=== PATIENT | female | born 1955 | race Caucasian/White ===

== ENCOUNTER 2017-11-28 04:41 | Emergency (ER) | payer BC ==
[~2017-11-28] VITALS: Ht 160 cm; Wt 45.4 kg
--- OUTSIDE RECORDS SUMMARY | 2017-11-28 04:47 | XMS | Clinical Summary ---
Demographics + + + | Address | [address] | | | [place] [address] | + + + | Home Phone | | + + + | Preferred Language | Unknown | + + + | Marital Status | Single | + + + | Orthodoxy Affiliation | CAT | + + + | Race | White | + + + | Ethnic Group | Not or | + + + Author + + + | Author | [facility] | + + + | Organization | [facility] | + + + | Address | Unknown | + + + | Phone | Unavailable | + + + Care Team Providers + +------+ + | Care Termite Renewal Inspector Name | Role | Phone | + +------+ + PP | Unavailable | + +------+ + Source Comments GIORGIO is fully live on both [facility] and [facility] InPatient.[facility] Allergies Not on File Current Medications Not on file Active Problems Not on file Social History + +-------+ +--------+------+ | Tobacco Use | Types | Packs/Day | Years | Date | | | | | Used | | + +-------+ +--------+------+ | Never Assessed | | | | | + +-------+ +--------+------+ + + + | Sex Assigned at | Date Recorded | | | | + + + | Not on file | | + + + Plan of Treatment + + + + + | Health Maintenance | Due Date | Last Done | Comments | + + + + + | INFLUENZA VACCINE | | | | | (FLU SHOT) | 7 | | | + + + + + Results Not on filefrom Last 3 Months"
--- OUTSIDE RECORDS SUMMARY | 2017-11-28 04:47 | XMS | Clinical Summary ---
Demographics + + + | Address | [address] | | | [place] [address] | + + + | Home Phone | | + + + | Preferred Language | Unknown | + + + | Marital Status | Single | + + + | Yarsani Affiliation | CAT | + + + | Race | White | + + + | Ethnic Group | Not or | + + + Author + + + | Author | [facility] | + + + | Organization | [facility] | + + + | Address | Unknown | + + + | Phone | Unavailable | + + + Care Team Providers + +------+ + | Care Plant Changer Name | Role | Phone | + +------+ + PP | Unavailable | + +------+ + Source Comments GIORGIO is fully live on both [facility] and [facility] InPatient.[facility] Allergies Not on File Current Medications Not [...]
[2017-11-28] MEDS ORDERED: SLIPPERY ELM (06:34)
[2017-11-28] MEDS ORDERED: MSM1000 MG PO (06:35)
[2017-11-28] MEDS ORDERED: GLUCOSAMIN-CHO1 EACH PO (06:35)
[2017-11-28] MEDS ORDERED: GINKGO60 MG PO (06:36)
[2017-11-28] MEDS ORDERED: EVENING PRIMRO500 M1 PO (06:37)
[2017-11-28] MEDS ORDERED: ALLERCLEAR10 MG PO (06:37)
[2017-11-28] MEDS ORDERED: ECHINACEA EXTR125 MG PO (06:37)
[2017-11-28] MEDS ORDERED: ONE-TABLET-DAI1 EACH PO (06:38)
[2017-11-28] MEDS ORDERED: ZOFRAN ODT4 MG PO (08:34)
== END 2017-11-28 08:52 | disposition home or self-care (01) ==
LOC: ED 04:41
DX: E87.6 Hypokalemia (principal); R11.2 Nausea with vomiting, unspecified; R10.13 Epigastric pain; Z88.2 Allergy status to sulfonamides; Z88.5 Allergy status to narcotic agent; Z79.899 Other long term (current) drug therapy
CPT/HCPCS: 74177; 80048; 80053; 83690; 85025; 96374; 96375; 96376; 99284; J2405; J2550; J3480; J7030; Q9967

== ENCOUNTER 2020-11-02 21:36 | Emergency (ER) | payer BC ==
[~2020-11-02 21:36] MED LIST: ALLERCLEAR10 MG PO; ECHINACEA EXTR125 MG PO; EVENING PRIMRO500 M1 PO; GINKGO60 MG PO; GLUCOSAMIN-CHO1 EACH PO; MSM1000 MG PO; ONE-TABLET-DAI1 EACH PO; SLIPPERY ELM; ZOFRAN ODT4 MG PO
[2020-11-02] MEDS ORDERED: FLUTICASONE PRO16 GM NAS (21:56)
[2020-11-02] MEDS ORDERED: NASAL DECONGEST30 MG PO (21:57)
[2020-11-02] MEDS ORDERED: EPINEPHRIN0.3 MG/0.3 IM (21:58)
[2020-11-02] MEDS ORDERED: CALCIUM + VITA1 EACH PO (21:59)
== END 2020-11-03 00:07 | disposition home or self-care (01) ==
LOC: ED 21:36
DX: S09.90XA Unspecified injury of head, initial encounter (principal); S03.2XXA Dislocation of tooth, initial encounter; W22.8XXA Striking against or struck by other objects, initial encounter; Z85.3 Personal history of malignant neoplasm of breast; Z88.2 Allergy status to sulfonamides; Z88.5 Allergy status to narcotic agent; Z79.899 Other long term (current) drug therapy
CPT/HCPCS: 70450; 70486; 72125; 90471; 90715; 99283-25

== ENCOUNTER 2022-09-06 06:59 | Day surgery (SDC) | payer BC ==
[~2022-09-06] VITALS: Ht 160 cm; Wt 49.0 kg
[~2022-09-06 06:59] MED LIST changes: +CALCIUM + VITA1 EACH PO; +EPINEPHRIN0.3 MG/0.3 IM; +FLUTICASONE PRO16 GM NAS; +NASAL DECONGEST30 MG PO
--- NOTE | 2022-09-06 08:43 | NUR ---
09/06/22 0843 Opal Fitzgerald 0843-PATIENT ARRIVED TO PACU ON 2L NC RR EVEN. PATIENT LAYING LEFT LATERAL ABDOMEN SOFT. NONAROUSABLE. IVF INFUSING
--- NOTE | 2022-09-06 09:30 | OR ---
[facility] [address] [place], [place] [address] Signed DATE OF OPERATION: 09/06/2022 SURGEON: Anika Shannon MD PREOPERATIVE DIAGNOSIS: Personal history of colonic polyps 2018 (63). POSTOPERATIVE DIAGNOSES: 1. Long redundant colon. 2. Minimal internal hemorrhoids. 3. 4 mm polyp at 8 cm (rectum). 4. 7 mm polyp at 30 cm (snare). 5. 4 mm polyp at 50 cm. PROCEDURE: Colonoscopy with snare polypectomy and hot biopsy. ESTIMATED BLOOD LOSS: None. INDICATIONS: Justin is a 67-year-old female who is 5 foot 2 inches tall and 108 pounds with a body mass index of 19. She had undergone a colonoscopy in [address] Ruby in [place]. Apparently, the prep was poor and she had a large polyp removed. She went back one year later with Dr. Ruby and thinks maybe a small polyp had been removed. She was then asked to return in three years. She has no lower GI complaints. There is no family history of colon cancer or polyps. I had met with Justin in the office and gave her a pamphlet on colonoscopy. We reviewed the nature of the colonoscopy together. She understands there is risk including, but not limited to gas bloating, crampy abdominal pain, bleeding, perforation requiring surgery, and missed diagnosis. We also reviewed the need for IV conscious sedation. She had expressed understanding and wished to proceed. PROCEDURE NOTE: Justin was taken into our endoscopy suite and placed in the left lateral decubitus position. She was given a total of 6 mg of Versed and 150 mcg of fentanyl to cover the case. A digital rectal exam was performed and this was unremarkable. The adult colonoscope was introduced and advanced under direct visualization of the camera. Her prep was quite excellent. We took two of the polyps out with the hot biopsy forceps. We used our snare at 30 cm. We found that Justin has a very long redundant colon. Electronically Signed By: ANIKA SHANNON MD 09/06/22 0930 PATIENT NAME: JUSTIN METZGER OPERATIVE REPORT DATE OF : 51 REPORT #: [id number] PHYSICIAN: ANIKA SHANNON MD PCP: DANYELLE CLAROS REPORT IS CONFIDENTIAL AND NOT TO BE RELEASED WITHOUT AUTHORIZATION [facility] [address] [place], [place] [address] Signed We made it over to what we thought was the hepatic flexure. That in itself took a tremendous amount of effort. We had to camera all the way up to the handle. We brought the camera in and out several times and added additional sedation. We used abdominal compression and we placed Justin in the supine position and back into the left lateral decubitus position. In the end, we could never get the scope to go any further. Therefore, the scope was then slowly withdrawn. We saw no diverticulosis. Once in the rectum, the scope was retroflexed and she has very tiny internal hemorrhoid tissue. After this, the gas was suctioned out and the colonoscope removed. Justin tolerated the procedure quite well. RECOMMENDATIONS: I will see Justin back in my office in 7 to 14 days to review her results. She will need a barium enema to evaluate the proximal colon. It looks like she will stay on the five year plan if not the three year plan. MD LASHELL Longo/WALTERL /[id number] cc: WEN Dozier MD Copies: ANIKA SHANNON MD ~ Electronically Signed By: ANIKA SHANNON MD 09/06/22 0930 PATIENT NAME: JUSTIN METZGER OPERATIVE REPORT DATE OF : 51 REPORT #: [id number] PHYSICIAN: ANIKA SHANNON MD PCP: DANYELLE CLAROS REPORT IS CONFIDENTIAL AND NOT TO BE RELEASED WITHOUT AUTHORIZATION
--- NOTE | 2022-09-06 09:46 | NUR ---
returned from pacu awake talkative taking sips water. at bs.
--- NOTE | 2022-09-06 16:44 | NUR ---
1015 SITTING UP IN BED DRINKING WATER. STATES ILL TRY TO GET DRESSED. ASSISTING.
--- NOTE | 2022-09-06 16:47 | NUR ---
1045 DRESSED, UP TO BR PASSING GAS. STATES FEELS TIRED. DCD PER WC WITH .
--- NOTE | 2022-09-11 15:19 | PATH ---
[facility] [address] [place], [place] [address] Signed SPECIMEN(S): A RECTAL POLYP AT 8 CM SPECIMEN(S): B COLON POLYP AT 30 CM SPECIMEN(S): C COLON POLYP AT 50 CM SPECIMEN SOURCE: A. RECTAL POLYP AT 8 CM B. COLON POLYP AT 30 CM C. COLON POLYP AT 50 CM CLINICAL HISTORY: Pre: Surveillance colonoscopy. History of polyps on two previous exams. Post: Redundant colon, polyps, internal hemorrhoids. FINAL PATHOLOGIC DIAGNOSIS: A. Rectal polyp at 8 cm: - Hyperplastic polyp (two fragments). B. Colon polyp at 30 cm: - Tubular adenoma (one fragment). C. Colon polyp at 50 cm: - Hyperplastic polyp (one fragment). JVR:[facility]:C2NR MICROSCOPIC EXAMINATION: Histologic sections of all submitted blocks are examined by light microscopy. These findings, together with the gross examination, support the pathologic diagnosis. GROSS DESCRIPTION: Three specimens are received in three containers, labeled "CL." A. The specimen, labeled "CL, rectal polyp at 8 cm," is received in formalin and consists of two montejo soft tissue fragments that measure 0.3-0.4 cm in greatest dimension. The specimen is entirely submitted in cassette (A1). B. The specimen, labeled "CL, colon polyp at 30 cm," is received in formalin and consists of one montejo soft tissue fragment that measures 0.7 cm in greatest dimension. The specimen is entirely submitted in cassette (B1). C. The specimen, labeled "CL, colon polyp at 50 cm," is received in formalin and consists of one montejo soft tissue fragment that measures 0.3 cm in greatest dimension. The specimen is entirely submitted in cassette (C1). PATIENT NAME: JUSTIN METZGER PATHOLOGY DATE OF : 51 REPORT #: [id number] PHYSICIAN: BAN RAHMAN PCP: DANYELLE CLAROS REPORT IS CONFIDENTIAL AND NOT TO BE RELEASED WITHOUT AUTHORIZATION [facility] [address] [place], [place] [address] Signed VB (under the direct supervision of a pathologist) The Gross Description was prepared using a voice recognition system. The report was reviewed for accuracy; however, sound-alike word errors, addition and/or deletions may occur. If there is any question about this report, please contact Client Services. PERFORMING LABORATORY: The technical component was performed by [email or web address], [address] [place] [id number] (CLIA# [id number]). Professional interpretation was performed by [facility], [address] [place] [id number] (CLIA#: [id number]). Diagnostician: Santiago Zheng MD Pathologist Electronically Signed 09/11/2022 Copies: ~ PATIENT NAME: JUSTIN METZGER PATHOLOGY DATE OF : 51 REPORT #: [id number] PHYSICIAN: BAN RAHMAN PCP: DANYELLE CLAROS REPORT IS CONFIDENTIAL AND NOT TO BE RELEASED WITHOUT AUTHORIZATION
== END 2022-09-06 10:30 | disposition home or self-care (01) ==
LOC: OPS 06:59 → DS 06:59 → OPS 08:15
PROVIDERS: ATTEND Colon & Rectal Surgery
PROC: 0DBE8ZZ Excision of Large Intestine, Via Natural or Artificial Opening Endoscopic (ICD-10-PCS; 2022-09-06)
PROC: 0DBP8ZZ Excision of Rectum, Via Natural or Artificial Opening Endoscopic (ICD-10-PCS; principal; 2022-09-06 08:15)
DX: Z12.11 Encounter for screening for malignant neoplasm of colon (principal); Z86.010 Personal history of colon polyps; J30.2 Other seasonal allergic rhinitis; Z88.2 Allergy status to sulfonamides; Z88.5 Allergy status to narcotic agent; K63.89 Other specified diseases of intestine; K64.8 Other hemorrhoids; D12.6 Benign neoplasm of colon, unspecified
CPT/HCPCS: 99153; G0500; J2250; J3010; J7121

== ENCOUNTER 2022-11-09 06:48 | Day surgery (SDC) | payer BC ==
[~2022-11-09] VITALS: Ht 160 cm; Wt 47.7 kg
[~2022-11-09 06:48] MED LIST changes: +ALLEGRA ALLERG180 MG PO; +VENTOLIN HFA18 GM INH
[2022-11-09] MEDS ORDERED: ACETAMINOPHEN325 M1 PO (07:10)
[2022-11-09] MEDS ORDERED: FLUTICASONE PRO16 GM NAS (07:11)
[2022-11-09] MEDS ORDERED: NASAL DECONGEST10 MG PO (07:12)
--- NOTE | 2022-11-09 09:00 | NUR ---
11/09/22 0900 Arielle Alanis 0857- PT ARRIVES TO PACU NONAROUSABLE TO STIMULI WITH AN OPA IN PLACE. RESP EVEN AND UNLABORED. OXYGEN SAT 100% ON 10L VIA MASK. OXYGEN TITRATED DOWN TO 6L.
--- NOTE | 2022-11-09 11:13 | OR ---
[facility] [address] [place], [place] [address] Signed DATE OF OPERATION: 11/09/2022 SURGEON: Anika Shannon MD PREOPERATIVE DIAGNOSES: 1. Tattoo mid right colon. 2. Personal history of colonic polyps starting in 2018 at age 62. 3. Possible history of diverticulosis. 4. Long redundant colon. 5. Minimal internal hemorrhoids. 6. Incomplete colonoscopy in 2021. POSTOPERATIVE DIAGNOSES: 1. Tattoo mid right colon. 2. 4 mm polyp proximal right colon. 3. 7 mm sessile polyp mid right colon next to tattoo. 4. 10 mm sessile polyp, distal right colon. 5. 3 mm polyp at 5 cm. 6. Long redundant colon. 7. No evidence of diverticulosis. PROCEDURE: Colonoscopy with hot biopsy. ESTIMATED BLOOD LOSS: None. INDICATIONS: Justin is a 67-year-old female who returns for a followup colonoscopy. We finally tracked down her records in 2018 and in [address] Ruby. She had a 3 cm sessile serrated adenomatous polyp in her right colon. Tattoo had been left. Dr. Ruby went back one year later and removed the rest of that polyp. Justin also was very sensitive to the bowel preps and has to take her bowel prep throughout the entire day. She was told to follow up in three years for repeat colonoscopy. We did her colonoscopy last fall and we used Versed and fentanyl. We were unable to get all around into the proximal right colon because of the length of her left colon and she was quite uncomfortable. She is returning now to repeat the colonoscopy with monitored anesthesia care using propofol. She tells me that she uses the MiraLAX with Jell-O and that worked out very well for her. She also has a very tiny internal hemorrhoid tissue. In the office then, I had given her another brochure on colonoscopy. We reviewed the nature of Electronically Signed By: ANIKA SHANNON MD 11/09/22 1113 PATIENT NAME: JUSTIN METZGER OPERATIVE REPORT DATE OF : 51 REPORT #: [id number] PHYSICIAN: ANIKA SHANNON MD PCP: DANYELLE CLAROS REPORT IS CONFIDENTIAL AND NOT TO BE RELEASED WITHOUT AUTHORIZATION [facility] [address] [place] [id number] Signed the test. She understands there is risk including, but not limited to gas bloating, crampy abdominal pain, bleeding, perforation requiring surgery, and missed diagnosis. We also talked about monitored anesthesia care with propofol versus a barium enema. She told me she thought she would be too sensitive for the barium enema. She therefore presents today for a followup colonoscopy with propofol infusion. She and her had expressed understanding and wished to proceed. PROCEDURE NOTE: Justin was taken into our endoscopy suite and placed in the left lateral decubitus position. She was given monitored anesthesia care with propofol per nurse toolmaker grade three. A digital rectal exam was performed and this was unremarkable. There were no external hemorrhoids. She has good sphincter tone. There were no masses. The adult colonoscope was introduced and advanced under direct visualization of the camera. Justin continues to lose weight as the years go by. She is quite thin and she has no abdominal fat. It took quite a long time to push the camera in and out, use abdominal compression in order to get the colon straightened out and onto the camera. We eventually made it around into the cecum. Her prep was quite excellent. We could easily see the appendiceal orifice and the ileocecal valve. The scope was then slowly withdrawn. We had seen her tattoo in the mid right colon. The above-mentioned polyps were removed with the help of hot biopsy forceps. We came back into a very long redundant left colon. We did not see any diverticula. The scope had been retroflexed in the rectum and she has very tiny if any internal hemorrhoid tissue. After this, the gas was suctioned out and the colonoscope removed. Justin tolerated the procedure much better on this occasion. RECOMMENDATIONS: I will see Justin in my office in 7 to 14 days to review her results. She will always need to take her bowel prep throughout the entire day. She will always need monitored anesthesia care with propofol. Anika Shannon MD ALB/MODL /[id number] cc: Anika Shannon MD Electronically Signed By: ANIKA SHANNON MD 11/09/22 1113 PATIENT NAME: JUSTIN METZGER OPERATIVE REPORT DATE OF : 51 REPORT #: [id number] PHYSICIAN: ANIKA SHANNON MD PCP: DANYELLE CLAROS REPORT IS CONFIDENTIAL AND NOT TO BE RELEASED WITHOUT AUTHORIZATION [address] [address] Signed WEN Dozier Copies: ANIKA SHANNON MD ~ Electronically Signed By: ANIKA SHANNON MD 11/09/22 1113 PATIENT NAME: JUSTIN METZGER OPERATIVE REPORT DATE OF : 51 REPORT #: [id number] PHYSICIAN: ANIKA SHANNON MD PCP: DANYELLE CLAROS REPORT IS CONFIDENTIAL AND NOT TO BE RELEASED WITHOUT AUTHORIZATION
--- NOTE | 2022-11-12 14:26 | PATH ---
[facility] [address] [facility] [place] [place] [address] Signed SPECIMEN(S): A PROXIMAL ASCENDING/RIGHT COLON POLYP SPECIMEN(S): B MID ASCENDING/RIGHT COLON POLYP SPECIMEN(S): C DISTAL ASCENDING/RIGHT COLON POLYP SPECIMEN(S): D DISTAL COLON POLYP AT 45 CM SPECIMEN(S): E DISTAL COLON POLYP AT 5 CM SPECIMEN SOURCE: A. PROXIMAL ASCENDING/RIGHT COLON POLYP B. MID ASCENDING/RIGHT COLON POLYP C. DISTAL ASCENDING/RIGHT COLON POLYP D. DISTAL COLON POLYP AT 45 CM E. DISTAL COLON POLYP AT 5 CM CLINICAL HISTORY: Preop: Colon polyps, redundant colon. Postop: Polyps and long redundant colon. FINAL PATHOLOGIC DIAGNOSIS: A. Proximal ascending / right colon polyp: - Polypoid fragment of benign colonic mucosa with a prominent mucosal lymphoid aggregate with reactive histologic features and slight hyperplastic epithelial features. - Negative for dysplasia or malignancy. B. Mid ascending / right colon polyp: - Serrated polyp / adenoma (multiple fragments). C. Distal ascending / right colon polyp: - Serrated polyp / adenoma (multiple fragments). D. Distal colon polyp at 45 cm: - Benign colonic mucosa, negative for pathologic inflammation or epithelial dysplasia. E. Distal colon polyp at 5 cm: - Hyperplastic polyp (one fragment). JVR:finn:C2NR MICROSCOPIC EXAMINATION: Histologic sections of all submitted blocks are examined by light microscopy. These findings, together with the gross examination, support the pathologic diagnosis. GROSS DESCRIPTION: A. The specimen, labeled and designated "Long, proximal ascending/right polypectomy," is received in formalin and consists of one montejo soft tissue PATIENT NAME: JUSTIN METZGER PATHOLOGY DATE OF : 51 REPORT #: [id number] PHYSICIAN: BAN RAHMAN PCP: DANYELLE CLAROS REPORT IS CONFIDENTIAL AND NOT TO BE RELEASED WITHOUT AUTHORIZATION [facility] [address] [place], [place] [address] Signed fragment, 0.2 cm. Entirely submitted in (A1). B. The specimen, labeled and designated "Long, mid ascending/right colon polypectomy," is received in formalin and consists of three montejo soft tissue fragments, ranging from 0.1-0.3 cm. Entirely submitted in (B1). C. The specimen, labeled and designated "Long, distal ascending/right colon polypectomy," is received in formalin and consists of four montejo soft tissue fragments, ranging from 0.2-0.3 cm. Entirely submitted in (C1). D. The specimen, labeled and designated "Long, 45 cm distal colon polyp," is received in formalin and consists of two montejo soft tissue fragments, ranging from 0.2-0.3 cm. Entirely submitted in (D1). E. The specimen, labeled and designated "Long, 5 cm, polypectomy distal colon," is received in formalin and consists of one montejo soft tissue fragment, 0.2 cm. Entirely submitted in (E1). AC (under the direct supervision of a pathologist) The Gross Description was prepared using a voice recognition system. The report was reviewed for accuracy; however, sound-alike word errors, addition and/or deletions may occur. If there is any question about this report, please contact Client Services. PERFORMING LABORATORY: The technical component was performed by [facility], [address] [place] [id number] (CLIA# [id number]). Professional interpretation was performed by [facility], [address] [place] [address] Ave[address] [place] [address] (CLIA#: [id number]). Diagnostician: Santiago Zheng MD Pathologist Electronically Signed 11/12/2022 Copies: ~ PATIENT NAME: JUSTIN METZGER PATHOLOGY DATE OF : 51 REPORT #: [id number] PHYSICIAN: BAN PATHOLOGY PCP: DANYELLE CLAROS REPORT IS CONFIDENTIAL AND NOT TO BE RELEASED WITHOUT AUTHORIZATION
== END 2022-11-09 09:56 | disposition home or self-care (01) ==
LOC: OPS 06:48 → DS 06:48 → OPS 08:15 → DS 08:15 → OPS 09:56
PROVIDERS: ATTEND Colon & Rectal Surgery
PROC: 0DBF8ZX Excision of Right Large Intestine, Via Natural or Artificial Opening Endoscopic, Diagnostic (ICD-10-PCS; principal; 2022-11-09 08:15)
DX: D12.2 Benign neoplasm of ascending colon (principal); K63.5 Polyp of colon; K64.0 First degree hemorrhoids; Q43.8 Other specified congenital malformations of intestine; J45.20 Mild intermittent asthma, uncomplicated; Z86.010 Personal history of colon polyps; Z88.5 Allergy status to narcotic agent; Z88.2 Allergy status to sulfonamides; Z79.899 Other long term (current) drug therapy
CPT/HCPCS: J2405; J2704; J7121

== ENCOUNTER 2024-12-05 17:50 | Emergency (ER) | payer BC ==
[~2024-12-05] VITALS: Ht 160 cm; Wt 47.8 kg
[~2024-12-05 17:50] MED LIST changes: +ACETAMINOPHEN325 M1 PO; +NASAL DECONGEST10 MG PO
[2024-12-05 19:45] LABS: BASOPHILS 0.4 % (0-2); HEMATOCRIT 38.2 % (35.0-50.0); HEMOGLOBIN 13.1 g/dL (12.0-18.0); LYMPHOCYTES 33.6 % (24-44); MCH 32.9 (27-36); MCHC 34.4 g/dl (30-36); MCV 95.6 fl (81-99); MONOCYTES 7.9 % (0-12); NEUTROPHILS 57.1 % (39-80); PLATELET COUNT 198 K/uL (140-440); RBC 3.99 M/ul (4.3-5.7); RDW 12.8 (10.5-15.0)
[2024-12-05] MEDS ORDERED: ASPIRIN 81 MG CHEW PO ONE (19:45)
[2024-12-05 20:00] LABS: ALBUMIN 3.9 g/dL (3.4-5.0); ALBUMIN/GLOBULIN RATIO 1.08 (1.1-2.4); ANION GAP 12.1 (7-21); BILIRUBIN, TOTAL 0.2 mg/dL (0.2-1.0); BUN/CREATININE RATIO 15.58 (6.0-28.6); CALCIUM 9.4 mg/dL (8.5-10.1); CREATININE, SERUM 0.77 mg/dL (0.55-1.02); MAGNESIUM 1.9 mg/dL (1.8-2.4); POTASSIUM 4.1 mmol/L (3.5-5.1); PROTEIN, TOTAL 7.5 g/dL (6.4-8.2)
[2024-12-05] MEDS ORDERED: FAMOTIDINE 20 MG/ 2 ML VIAL IV ONE (20:15)
[2024-12-05 21:40] VITALS: BP 134/83
--- NOTE | 2024-12-06 22:17 | EKG ---
[facility] [address] [facility] [place] [address] Signed Sinus rhythm with occasional premature ventricular complexes Otherwise normal ECG When compared with ECG of 31-OCT-2022 16:22, premature ventricular complexes are now present Confirmed by Lionel Lee MD () on 12/06/2024 10:17:25 PM Electronically Signed By: LIONEL LEE MD 12/06/24 2217 PATIENT NAME: JUSTIN METZGER Electrocardiogram DATE OF : 51 PHYSICIAN: LIONEL LEE MD REPORT #: [id number] REPORT IS CONFIDENTIAL AND NOT TO BE RELEASED WITHOUT AUTHORIZATION
== END 2024-12-05 21:41 | disposition home or self-care (01) ==
LOC: ED 17:50
PROVIDERS: Internal Medicine
DX: K21.9 Gastro-esophageal reflux disease without esophagitis (principal); B34.9 Viral infection, unspecified; Z79.51 Long term (current) use of inhaled steroids; Z79.899 Other long term (current) drug therapy; Z88.2 Allergy status to sulfonamides; Z88.5 Allergy status to narcotic agent
CPT/HCPCS: 36415; 71045; 80053; 83735; 84484; 85025; 93005; 93010; 96374; 99285-25; A9270